=== PATIENT | female | born 1950 | race Caucasian/White ===

== ENCOUNTER 2022-08-16 09:59 | Day surgery (SDC) | payer MEDICARE ==
[2022-08-15 14:03] VITALS: BMI 23.3
[2022-08-16] MEDS ORDERED: Scopolamine 1.5 mg/72 hour Patch ONE (11:50)
[2022-08-16] MEDS ORDERED: Neomycin-Polymyxin 1 ML AMP ONE (12:27)
[2022-08-16] MEDS ORDERED: Midazolam HCl 2 mg/2 ml Vial ONE (12:29)
[2022-08-16] MEDS ORDERED: Dexamethasone 20 MG/5 ML VIAL ONE ×2 (12:29)
[2022-08-16] MEDS ORDERED: Lidocaine 1% PF 5 ML VIAL ONE (12:29)
[2022-08-16] MEDS ORDERED: Fentanyl 100 MCG/2 ML VIAL ONE (12:29)
[2022-08-16] MEDS ORDERED: Ondansetron PF 4 MG/2 ML Vial ONE (12:29)
[2022-08-16] MEDS ORDERED: PROPOFOL 20 ML ONE (12:29)
[2022-08-16] MEDS ORDERED: Ketorolac Tromethamine 30 MG/ML VIAL ONE ×2 (12:29)
[2022-08-16] MEDS ORDERED: Clindamycin/D5W 600 mg/50 ml Premix Bag ONE (12:36)
[2022-08-16] MEDS ORDERED: PROPOFOL 40 ML ONE (12:55)
[2022-08-16] MEDS ORDERED: Bupivacaine PF 0.5% 30 ML VIAL ONE (13:17)
== END 2022-08-16 15:15 | disposition home or self-care (01) ==
LOC: CSHSDC 09:59
PROVIDERS: ATTEND Podiatrist Foot & Ankle Surgery
PROC: 0SSM0ZZ Reposition Right Metatarsal-Phalangeal Joint, Open Approach (ICD-10-PCS; principal; 2022-08-16)
DX: M20.11 Hallux valgus (acquired), right foot (principal); G47.00 Insomnia, unspecified; M79.671 Pain in right foot; Z79.899 Other long term (current) drug therapy; Z88.0 Allergy status to penicillin; Z88.8 Allergy status to other drugs, medicaments and biological substances
CPT/HCPCS: C1713; J1100; J1885; J2250; J2405; J2704; J3010; J3490; S0020

== ENCOUNTER 2022-11-29 13:19 | Outpatient (CLI) | payer MEDICARE | END 2022-11-29 13:20 | disposition home or self-care (01) | LOC: CSHMAMMO 13:19 | PROVIDERS: ATTEND Family Medicine | DX: M85.80 Other specified disorders of bone density and structure, unspecified site (principal); Z78.0 Asymptomatic menopausal state | CPT/HCPCS: 77080 ==